=== PATIENT | male | born 1990 | race Caucasian/White ===

== ENCOUNTER 2016-05-04 14:22 | Emergency (ER) | payer BC ==
[2016-05-04 14:26] VITALS: BP 144/72; BMI 33.7
--- NOTE | 2016-05-04 14:57 | DR.EXTPAIN ---
HPI - Time seen Time seen: 14:45 - PCP Primary Care Physician: YULIA - HPI Comment HPI Comment: PATIENT SAID IS PAINFUL TO WALK AND BEAR WEIGHT. NO FEVER. NO PUS DRAINAGE. - Complaint/Symptoms Chief Complaint Doctor Comments: RASH FEET SEVERAL WEEKS INVOLVING BETWEEN TOES. THE RASH IS WORSE AND BOTH FEET WITH REDNESS ACCENDING TO ANKLE. Chief Complaint:: PT. C/O FEET BREAKING OUT AND BEING PAINFUL WITH THE LEFT FOOT BEING WORSE. HE STATES HE THOUGHT HE HAD ATHLETE'S FOOT AND HAS BEEN TRYING TO USE OTC STUFF BUT ITS NOT GETTING BETTER. HE ALSO SAYS THAT HE HAS BEEN WEARING BOOTS MORE OFTEN THAN USUAL. - Nurses notes reviewed Nurses Notes Review: Yes - Source History Provided: Patient - Mode of arrival Mode of Arrival: Ambulatory - Timing Onset of Chief Complaint: 04/20/16 - Context History of: None - Associated signs and symptoms Associated Signs and Symptoms: Pain, Swelling PMH - PMH Past Medical History: No Past Surgical History: Yes Surgical History: Ortho Surgery - Family History History of Family Medical Conditions: No - Social History Does patient currently use any type of tobacco product: Yes Have you used tobacco products in the last 12 months: Yes Type of Tobacco Use: Cigarettes How many years tobacco product used: 6 Does any household member use tobacco: No Alcohol Use: None Do you use any recreational Drugs:: No Lives With: Spouse Lives Where: Home - infectious screening In the last 2 months have you had wt loss of >10#?: NO Have you had fever, night sweats or hemotysis?: No Have you traveled outside the country in the last 6 months?: No Isolation: Standard ROS - Review of Systems Constitutional: No Symptoms Reported Eyes: No Symptoms Reported ENTM: No Symptoms Reported Respiratoy: No Symptoms Reported Cardiovascular: No Symptoms Reported Gastrointestinal/Abdominal: No Symptoms Reported Genitourinary: No Symptoms Reported Neurological: No Symptoms Reported Musculoskeletal: Right, Left, Ankle, Foot Integumentary: Change in Color, Rash, Itching Hematologic/Lymphatic: No Symptoms Reported Endocrine: No Symptoms Reported All Other Systems: Reviewed and Negative PE - Vital Signs Vitals: Temperature 98.2 F Pulse Rate 73 Respiratory Rate 16 Blood Pressure 144/72 O2 Sat by Pulse Oximetry 98 - General Limitations: No Limitations General Appearance: Alert - Head Head Exam: Normal Inspection - Eyes Eye exam: Normal Appearance - ENT ENT Exam: Normal External Ear Exam - Neck Neck Exam: Trachea Midline - Chest Chest Inspection: Symmetric Chest Wall Rise - Respiratory Respiratory Exam: Normal Lung Sounds Bilat Respiratory Exam: Bilateral Clear to Auscultation - Cardiovascular Cardiovascular Exam: Regular Rate, Normal Rhythm, Normal Heart Sounds - Abdominal Exam Abdominal Exam: Normal Inspection - Extremities Extremities Exam: Tenderness (FEET), Joint Swelling (FEET) - Lower Extremities Ankle Exam: Erythema (BOTH ANKLES) Foot/Toe Exam: Tenderness, Swelling, Erythema, Other (TOES AND FEET WITH RASH AND REDNESS) - Skin Description: Tenderness (BOTH FEET), Erythematous, Swelling, Macular, Papular MDM - Differential Diagnosis Differential Diagnosis: Other (RASH, CELLUL;ITIS.) Course - Treatment Treatment: WOUND CLEAN AND LOTRASONE APPLIED. POST OP SHOES APPLIED TO BOTH FEET. - Consultation Consultation Comments: RETURN TO ED IF WORSE. - Education/Counseling Education/Counseling: Patient, Family, Education Educated On: Treatment, Diagnosis, Needs for Follow Up ROR - Labs Reviewed Laboratory Results Reviewed?: Yes Result Diagrams: 05/04/16 15:06 Laboratory: WBC 9.7 X10^3/uL (3.6-10.0) 05/04/16 15:06 RBC 4.70 X10^6/uL (4.7-6.0) 05/04/16 15:06 Hgb 13.1 g/dL (13.5-18.0) L 05/04/16 15:06 Hct 38.5 % (42.0-54.0) L 05/04/16 15:06 MCV 81.9 fL (80.0-100.0) 05/04/16 15:06 MCH 27.9 pg (27.0-34.0) 05/04/16 15:06 MCHC 34.1 g/dL (33.0-35.0) 05/04/16 15:06 RDW 13.7 % (11.6-16.5) 05/04/16 15:06 Plt Count 228 X10^3/uL (150.0-450.0) 05/04/16 15:06 MPV 9.0 fL (7.4-11.0) 05/04/16 15:06 Neut % 61.9 % (42.0-75.0) 05/04/16 15:06 Lymph % 23.4 % (21.0-51.0) 05/04/16 15:06 [facility] % 9.9 % (0.0-13.0) 05/04/16 15:06 Eos % 3.2 % (0.9-2.9) H 05/04/16 15:06 Baso % 1.6 % (0.2-1.0) H 05/04/16 15:06 Neut # 6.0 x10^3/uL (2.2-4.8) H 05/04/16 15:06 Lymph # 2.3 X10^3/uL (1.3-2.9) 05/04/16 15:06 [facility] # 1.0 x10^3/uL (0.3-0.8) H 05/04/16 15:06 Eos # 0.3 x10^3/uL (0.0-0.2) H 05/04/16 15:06 Baso # 0.2 X10^3/uL (0.0-0.1) H 05/04/16 15:06 Absolute Nucleated RBC 0.0 /100WBC 05/04/16 15:06 - Diagnosis Discharge Problem: Athletes foot Cellulitis Qualifiers: Site of cellulitis: extremity Site of cellulitis of extremity: lower extremity Laterality: left Qualified Code(s): L03.116 - Cellulitis of left lower limb - Discharge Plan Disposition: 01 HOME, SELF-CARE Condition: Stable Prescriptions: Ibuprofen [Motrin Tab 800 mg] 800 mg PO Q8H PRN #20 tab PRN Reason: Pain/Inflammation Sulfamethoxazole-Trimethoprim [BACTRIM DS TAB 800/160 MG *] 1 tab PO BID #20 tab - Follow ups/Referrals Follow ups/Referrals: [facility],None [Primary Care Provider] - 3 days Cornelius Moraes [STAFF PHYSICIAN] - 3 days - Instructions Instructions: Cellulitis, Athlete's Foot, [id number] Additional Instructions: RETURN TO ED IF WORSE.
[2016-05-04] MEDS ORDERED: TORADOL 60 MG VIAL IM ONE (14:59)
[2016-05-04] MEDS ORDERED: LOTRISONE CREAM 15 G TOP SCH (15:00)
[2016-05-04] MEDS ORDERED: TORADOL 60 MG VIAL ONE (15:06)
[2016-05-04 15:23] LABS: BASOPHILS # (AUTO) 0.2 X10^3/uL (0.0-0.1); BASOPHILS % (AUTO) 1.6 % (0.2-1.0); EOSINOPHILS # (AUTO) 0.3 x10^3/uL (0.0-0.2); EOSINOPHILS % (AUTO) 3.2 % (0.9-2.9); HEMATOCRIT 38.5 % (42.0-54.0); HEMOGLOBIN 13.1 g/dL (13.5-18.0); LYMPHOCYTES # (AUTO) 2.3 X10^3/uL (1.3-2.9); LYMPHOCYTES % (AUTO) 23.4 % (21.0-51.0); MEAN CORPUSCULAR HEMOGLOBIN 27.9 pg (27.0-34.0); MEAN CORPUSCULAR HGB CONC 34.1 g/dL (33.0-35.0); MEAN CORPUSCULAR VOLUME 81.9 fL (80.0-100.0); MONOCYTES % (AUTO) 9.9 % (0.0-13.0); NEUTROPHILS % (AUTO) 61.9 % (42.0-75.0); PLATELET COUNT 228 X10^3/uL (150.0-450.0); RED CELL DISTRIBUTION WIDTH 13.7 % (11.6-16.5); WHITE BLOOD COUNT 9.7 X10^3/uL (3.6-10.0)
[2016-05-04] MEDS ORDERED: BACTRIM DS TAB PO ONE ×2 (15:44→15:48)
== END 2016-05-04 16:07 | disposition home or self-care (01) ==
LOC: ER 14:31
DX: L03.116 Cellulitis of left lower limb (principal); B35.3 Tinea pedis
CPT/HCPCS: 36415; 85025; 96372; 99282; 99283; J1885